=== PATIENT | female | born 2000 | race Caucasian/White ===

== ENCOUNTER 2022-12-10 07:55 | Inpatient (IN) | payer MEDICAID ==
[~2022-12-10] VITALS: Ht 149.9 cm; Wt 45.4 kg
[2022-12-10] MEDS ORDERED: HALOPERIDOL 5 MG TABLET PO PRN (08:30)
[2022-12-10] MEDS ORDERED: ZOLPIDEM TARTRATE 10 MG TABLET PO PRN (08:30)
[2022-12-10] MEDS: LORazepam 2 MG TABLET PO PRN ×3 (12:06→21:48)
[2022-12-10 12:13] VITALS: BP 109/71
[2022-12-10] MEDS ORDERED: INFLUENZA VIRUS VACCINE QVS 2022-23 (6MO+)/PF 60 MCG/0.5 ML SYRINGE IM. ONE (14:00)
[2022-12-10 16:05] VITALS: BP 115/70
[2022-12-10] MEDS: NICOTINE 21 MG/24 HOUR PATCH TD PRN (17:57)
[2022-12-10 20:04] VITALS: BP 102/60
[2022-12-10] MEDS ORDERED: PETROLATUM,WHITE 28 GM JELLY TP PRN (21:30)
[2022-12-10] MEDS ORDERED: OMEPRAZOLE 20 MG CAPSULE PO PRN (21:30)
[2022-12-10] MEDS ORDERED: BENZOCAINE/MENTHOL LOZENGE PO PRN (21:30)
[2022-12-10] MEDS ORDERED: ONDANSETRON HCL 4 MG TABLET PO PRN (21:30)
[2022-12-10] MEDS ORDERED: ALBUTEROL SULFATE HFA 90 MCG/PUFF 8 GM INHALER IH PRN (21:30)
[2022-12-10] MEDS ORDERED: IBUPROFEN 600 MG TABLET PO PRN (21:30)
[2022-12-10] MEDS ORDERED: DOCUSATE SODIUM 100 MG CAPSULE PO PRN (21:30)
[2022-12-10] MEDS ORDERED: ACETAMINOPHEN 325 MG TABLET PO PRN (21:30)
[2022-12-10] MEDS ORDERED: MAGNESIUM HYDROXIDE SUSPENSION 30 ML UDCUP PO PRN (21:30)
[2022-12-10] MEDS ORDERED: CloNIDine HCL 0.1 MG TABLET PO PRN (21:30)
[2022-12-10] MEDS ORDERED: MAG HYDROX/AL HYDROX/SIMETH ES 30 ML SUSPENSION UDCUP PO PRN (21:30)
[2022-12-10] MEDS ORDERED: BACITRACIN 28 GM OINTMENT TP PRN (21:30)
[2022-12-10] MEDS ORDERED: LOPERAMIDE HCL 2 MG CAPSULE PO PRN (21:30)
[2022-12-11] VITALS: BP 108/72
[2022-12-11] MEDS: NICOTINE 21 MG/24 HOUR PATCH TD PRN (08:06)
[2022-12-11 08:50] VITALS: BP 111/65
[2022-12-11] MEDS ORDERED: CITALOPRAM HYDROBROMIDE 20 MG TABLET PO SCH (09:00)
== END 2022-12-11 16:00 | disposition home or self-care (01) | DRG 750 ==
LOC: B3A 09:52
PROVIDERS: ADMIT Psychiatry & Neurology Psychiatry; ATTEND Psychiatry & Neurology Psychiatry
DX: F25.9 Schizoaffective disorder, unspecified (principal); F17.200 Nicotine dependence, unspecified, uncomplicated; F41.9 Anxiety disorder, unspecified; T42.4X2A Poisoning by benzodiazepines, intentional self-harm, initial encounter; G47.00 Insomnia, unspecified; J44.9 Chronic obstructive pulmonary disease, unspecified; Z53.20 Procedure and treatment not carried out because of patient's decision for unspecified reasons; M54.50 Low back pain, unspecified; Z28.21 Immunization not carried out because of patient refusal; Z56.0 Unemployment, unspecified; Y92.89 Other specified places as the place of occurrence of the external cause; Z71.6 Tobacco abuse counseling
CPT/HCPCS: Z7610